=== PATIENT | female | born 1965 | race Caucasian/White ===

== ENCOUNTER → 2017-08-07 16:13 | Outpatient (CLI) | payer BC, SELFPAY ==
--- NOTE | 2017-08-07 16:15 | RAD_ITS ---
STUDY: X-RAY - RIGHT SHOULDER REASON FOR EXAM: Pain. TECHNIQUE: 3 view(s) of the shoulder. COMPARISON: None. FINDINGS: Normal glenohumeral articulation. There is acromioclavicular arthrosis. There is a small enthesophyte at the lateral aspect of the acromion. There is a small exostosis at the posterior aspect of the scapula on the scapular Y view. Normal humeral head and visualized proximal humerus. There is calcific tendinitis. Normal visualized pulmonary apex. RAD/Shoulder min 2 Views IMPRESSION: Calcific tendinitis. Acromioclavicular arthrosis. Electronically Signed: Godwin Cadena MD at 13:28 EDT Tel , Service support ,
== END ==
PROVIDERS: Family Provider Family Medicine; PCP Family Medicine; Visit Provider Orthopaedic Surgery
DX: M75.01 Adhesive capsulitis of right shoulder (principal); M75.02 Adhesive capsulitis of left shoulder
CPT/HCPCS: 73030

== ENCOUNTER → 2017-10-09 13:22 | Outpatient (CLI) | payer BC, SELFPAY ==
--- NOTE | 2017-10-09 13:23 | RAD_ITS ---
STUDY: X-RAY - CERVICAL SPINE REASON FOR EXAM: Female, 52 years old. Pain TECHNIQUE: 4 view(s) of the cervical spine were obtained. COMPARISON: None FINDINGS: Normal anterior atlantoaxial articulation. Normal odontoid process. Normal cervical lordosis. There are diffuse confluent flowing osteophytes along the anterior cervical spine. Multilevel disc space narrowing is seen. There is no significant change in alignment with the flexion and extension films. Normal visualized intervertebral neuroforamina. The soft tissue structures are unremarkable. There is a small density posterior to the spinous process of C6 which may represent a remote fracture. 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 Please correlate with history of ankylosing spondylitis. Diffuse idiopathic skeletal hyperostosis could also have this appearance. No definite acute fracture. Electronically Signed: Darryl Samuels DO at 13:08 EDT Tel , Service support ,
== END ==
PROVIDERS: Family Provider Family Medicine; PCP Family Medicine; Visit Provider Orthopaedic Surgery
DX: M54.2 Cervicalgia (principal)
CPT/HCPCS: 72050

== ENCOUNTER → 2017-10-29 15:36 | Outpatient (CLI) | payer BC, SELFPAY ==
--- NOTE | 2017-10-29 15:39 | MRI_ITS ---
STUDY: MRI CERVICAL SPINE WITHOUT CONTRAST REASON FOR EXAM: Female, 52 years old. Neck pain radiating to right upper extremity TECHNIQUE: Standardized fat and water weighted pulse sequences were obtained in the sagittal and axial planes. COMPARISON: None FINDINGS: Normal foramen magnum and brainstem-cervical cord junction. Normal craniovertebral junction. Normal anterior atlantoaxial articulation. Normal odontoid process. Normal cervical lordosis. Normal vertebral bodies and posterior osseous elements. C2-3: Normal endplates. Normal disc height, signal and morphology. Normal central canal and intervertebral neural foramina. C3-4: Normal endplates. Normal disc height, signal and tiny central disc protrusion. Normal central canal and intervertebral neural foramina. C4-5: Normal endplates. Normal disc height, signal and morphology. Normal central canal and intervertebral neural foramina. C5-6: Normal endplates. Normal disc height, signal and morphology. Normal central canal and intervertebral neural foramina. C6-7: Normal endplates. Normal disc height, signal and tiny central disc protrusion.. Normal central canal and intervertebral neural foramina. C7-T1: Normal endplates. Normal disc height, signal and morphology. Normal central canal and intervertebral neural foramina. Normal cervical cord. Normal visualized soft tissue structures. MRI/Spine Cervical (Routine) IMPRESSION: No evidence for acute fracture or subluxation. Tiny central disc protrusion at C3-4 and C6-7 without evidence for spinal stenosis Electronically Signed: Florentin Taylor MD at 19:25 EDT , Service support ,
== END ==
PROVIDERS: Family Provider Family Medicine; PCP Family Medicine; Visit Provider Orthopaedic Surgery
DX: M54.12 Radiculopathy, cervical region (principal)
CPT/HCPCS: 72141

== ENCOUNTER 2018-01-01 15:00 | Outpatient (RCR) | payer BC, SELFPAY ==
--- NOTE | 2017-12-05 07:59 | HP.PTEVAL ---
Patient's Visit Information ROBERTO MCADAMS is a 52 year old F referred to Physical Therapy by Kyra Villar DO with a diagnosis of B frozen shoulder. Date of Evaluation: 12/04/17 Physical Therapist: Samuel Armenta PT, - Visit Plan Frequency: 2-3x /Week Duration: 4-6 Weeks Plan: B shoulder PROM/AROM/MOBS, strengthening (rot cuff), scap stab, ube, HEP - Subjective Subjective: Pt reports her L shoulder became sore 2 years ago. Pt reports she had PT for her limited ROM and pain in the past. Pt notes her R shoulder became sore about 5-6 mos ago. Pt reports neither one of her shoulders were injured, the pain just came on over time. Pt reports she did have a cortisone injection into her R shoulder which helped over the weekend, but her pain is starting to return. Pt reports she is scheduled to see a neurologist for her neck pain she has at this time. Pt has B UE T and N that extends to her fingers. Pt is R hand dom. Pt has been seen by a spine surgeon that said there is nothing she can do for the impairment. 3/10 pain at rest, 9/10 at worst (at night). 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 B bicepital reflex= 2/3. Palpation: No obvious deformity present at this time. ROM: R shoulder flex= 127, abd= 92, ER= 15, IR severely limited; R shoulder flex= 85, abd= 50, ER= 0, IR severely limited. MMT: B shoulders are grossly 4/5 in available range. Special testing: pos empty can - Goals Goal 1:: Decrease B shoulder pain x 50% to aid with sleep Goal Time Frame: 4-6 Weeks Goal 2:: Increase B shoulder flex and abd ROM x 40 degrees to aid with over head activity Goal Time Frame: 4-6 Weeks Goal 3:: Increase B shoulder strength x 1 grade to aid with IADL's Goal Time Frame: 4-6 Weeks Goal 4:: I with HEP Goal Time Frame: 4-6 Weeks Goal Time Frame: 2-4 Weeks - Rehabilitation Potential Physical Therapy Diagnosis: B shoulder pain, weakness, and limited ROM secondary to B adhesive capsulitis Rehabilitation Potential: Good - Anticipated Interventions Patient/Client Instruction: Educate patient on: Condition, Plan of Care For the Purpose of:: To improve self management Therapeutic Exercise to Include: Strength training, Endurance training, Flexibilty training, Passive ROM, Active ROM, Scapular Strength/Stabilization For the Purpose of:: To decrease pain, To increase ROM, To improve muscle performance and motor function Cryotherapy (ice pack, ice massage): Yes Thermo therapy (hot pack): Yes Ultrasound (thermal/non thermal): Yes For the Purpose of:: To decrease pain Thank you for the opportunity to evaluate your patient. For Medicare and Medicare HMO plans, please review the plan of care and approve it. It will need to be FAXED BACK to us at [phone] for Medicare purposes. Please let me know if there are questions or concerns regarding this plan of care. Physician Signature: Date:
--- NOTE | 2018-02-22 09:35 | HP.PT.NRP ---
HP - Discharge Summary (1) - Patient Information ROBERTO MCADAMS was seen in my office for initial evaluation on 12/04/17. The following Plan of Care was established for this patient: Initial Frequency: 2-3x /Week Initial Duration: 4-6 Weeks - Anticipated Interventions Patient/Client Instruction: Educate patient on: Condition, Plan of Care For the Purpose of:: To improve self management Therapeutic Exercise to Include: Strength training, Endurance training, Flexibilty training, Passive ROM, Active ROM, Scapular Strength/Stabilization For the Purpose of:: To decrease pain, To increase ROM, To improve muscle performance and motor function Cryotherapy (ice pack, ice massage): Yes Thermo therapy (hot pack): Yes Ultrasound (thermal/non thermal): Yes For the Purpose of:: To decrease pain This patient was last seen in our office . Pertinent comments regarding their Physical therapy will appear below: Pt was treated for 6 PT visits for her B frozen shoulders through the date of 01/01/18. Pt did not return after that treatment through todays date, and is therefore discontinued at this time At this point I will be discontinuing this patient from physical therapy. I would be happy to see this patient again in the future if found appropriate by the physician. Thank you! Samuel Armenta, PT,
== END 2018-01-01 19:00 | disposition home or self-care (01) ==
LOC: PT 15:00
PROVIDERS: Family Provider Family Medicine; PCP Family Medicine; Visit Provider Orthopaedic Surgery
DX: M75.02 Adhesive capsulitis of left shoulder (principal); M75.01 Adhesive capsulitis of right shoulder
CPT/HCPCS: 97110; 97140; 97161

== ENCOUNTER 2018-04-01 20:17 | Emergency (ER) | payer BC, SELFPAY ==
[2018-04-01 20:20] VITALS: BP 138/80; PULSE 93; RESP 16; TEMP 36.4; O2SAT 97; BMI 30.9
--- NOTE | 2018-04-01 20:30 | US_ITS ---
STUDY: VENOUS DOPPLER ULTRASOUND - LEFT LOWER EXTREMITY REASON FOR EXAM: Female, 52 years old. Left leg pain TECHNIQUE: Ultrasound evaluation of the deep vein system to include castelan-scale imaging and compression was performed. Castelan-scale imaging and Doppler sonographic evaluation, including duplex spectral analysis and qualitative color flow sonography, was performed. COMPARISON: None. FINDINGS: Common Femoral Vein: Normal compression, spontaneity and augmentation. Normal color Doppler. Common Femoral Vein/Greater Saphenous Junction: Normal compression, spontaneity and augmentation. Normal color Doppler. Deep Femoral Vein: Normal compression, spontaneity and augmentation. Normal color Doppler. Femoral Proximal: Normal compression, spontaneity and augmentation. Normal color Doppler. Femoral Middle: Normal compression, spontaneity and augmentation. Normal color Doppler. Femoral Distal: Normal compression, spontaneity and augmentation. Normal color Doppler. Popliteal Vein: Normal compression, spontaneity and augmentation. Normal color Doppler. Posterior Tibial Vein: Normal compression, spontaneity and augmentation. Normal color Doppler. Peroneal Vein: Normal compression, spontaneity and augmentation. Normal color Doppler. US/Venous Duplex Imag/Limited/Uni IMPRESSION: Normal venous Doppler ultrasound of the lower extremity. Electronically Signed: Osmin Maloney MD at 21:08 EST , Service support ,
--- NOTE | 2018-04-01 21:33 | ED.DCSUM_ITS ---
- ER Visit Summary Date of Service: 04/01/18 Chief Complaint: Left hamstring pain. History of Present Illness: The patient is a 52 F complaining of left hamstring pain for 2 days. No falls or trauma. She did start a new job at [employer] and has been hot. She also bands and carries things a lot. No recent travel, surgery or immobilization. No recent hospitalization PE. No calf pain or swelling. No chest pain or shortness of breath. When she was sent in by her primary care physician for a noninvasive study. Physical Examination: Well-appearing female. No acute distress. Vital signs are stable and afebrile. Pulse ox 97% on room air no signs of hypoxia. H EENT exam normal. Neck nontender. Lungs clear to auscultation bilaterally. Heart regular rhythm no murmur. Abdomen is soft nontender. Extremities moves all 4. Neurovascular intact. Both calves are nontender without edema or cords. Dorsi plantar flexion intact. DP pulse left foot. Left hamstring has minimal tenderness. There is no redness or warmth. There is no bruising. There is no bony deformity. She has full range of motion of the left lower extremity. With flexion extension of the hip and knee and ankle. Reactive lymphadenopathy no sensory or motor loss. No signs of infection or trauma. Neurologic exam normal. Test Results: Noninvasive study left leg normal. No DVT. Emergency Department Course and Treatment: Likely my suspicion for DVT was low. The ultrasound was negative. I think this is musculoskeletal etiology from her new job and increased activity. Treatment Plan: Ice to the area. Hot shower and warm bath. Motrin for pain. Disposition: Discharge Impression: Left hamstring muscular skeletal pain This note was generated with [employer] dictation software. It may contain incorrect words, spelling, and punctuation that were not noted in review of the chart prior to signing ED Disposition - Plan for ED Patient: Chief Complaint: Lower Extremity Injury Referrals: Keith Lopez MD [Primary Care Provider] -
--- NOTE | 2018-04-01 21:33 | ED.DEP ---
ED Disposition - Plan for ED Patient: Disposition: Home or Assisted Living Chief Complaint: Lower Extremity Injury Instructions: ED Strain Muscle Ext Referrals: Keith Lopez MD [Primary Care Provider] - As Needed Additional Instructions: Rest, Motrin, warm compresses and/or ice. This should progressively improve if not be reevaluated.
== END 2018-04-01 21:54 | disposition home or self-care (01) ==
PROVIDERS: Emergency Provider Emergency Medicine; Family Provider Family Medicine; PCP Family Medicine
DX: M79.18 Myalgia, other site (principal); E11.9 Type 2 diabetes mellitus without complications
CPT/HCPCS: 93971; 99282

== ENCOUNTER → 2018-10-22 13:44 | Outpatient (CLI) | payer BC, SELFPAY ==
--- NOTE | 2018-10-22 13:48 | RAD_ITS ---
STUDY: X-RAY - PELVIS REASON FOR EXAM: Female, 53 years old. Arthropathy TECHNIQUE: One view of the pelvis was obtained. COMPARISON: None. FINDINGS: There is a non-specific bowel gas pattern. Normal visualized soft tissue structures. Status post bilateral tubal ligation. Normal bilateral iliac wings, sacroiliac joints and visualized sacrum. Normal visualized bilateral superior and inferior pubic rami. Normal pubic symphysis. Normal ischial tuberosities. Normal visualized right femoral head. Normal right acetabulum. Normal right hip joint. Normal visualized left femoral head. Normal left acetabulum. Normal left hip joint. RAD/Pelvis 1 or 2 Views IMPRESSION: Normal x-ray examination of the pelvis. Electronically Signed: uHgh Paulino MD at 17:10 EDT Tel , Service support ,
== END ==
PROVIDERS: Family Provider Family Medicine; PCP Family Medicine; Referring Provider Internal Medicine Rheumatology; Visit Provider Internal Medicine Rheumatology
DX: M06.4 Inflammatory polyarthropathy (principal); M48.10 Ankylosing hyperostosis [Forestier], site unspecified; R51 Headache; E11.9 Type 2 diabetes mellitus without complications; G47.33 Obstructive sleep apnea (adult) (pediatric); Z87.11 Personal history of peptic ulcer disease
CPT/HCPCS: 72170

== ENCOUNTER → 2018-10-24 09:35 | Outpatient (CLI) | payer BC, SELFPAY ==
[2018-10-24 12:16] LABS: Absolute Lymphocyte Count 2.02 X10^3/ul (0.83-4.51); Absolute Neutrophil Count 2.9 X10^3/uL (2.0-7.7); Basophil# 0.04 X10^3/uL; Basophil% 0.7 % (0-1); Eosinophils% 1.8 % (0-5); Hematocrit 43.3 % (37-47); Hemoglobin 14.3 g/dl (12.0-15.0); Lymphocyte # 2.02 X10^3/ul (4.0); Lymphocyte % 36.6 % (19-41); Mean Corpuscular Hgb 27.4 pg (27.0-32.0); Mean Corpuscular Volume 83.1 fL (81-99); Mean Platelet Vol. 11.4 fl (6.2-12.0); Monocyte# 0.43 X10^3/uL; Monocyte% 7.8 % (0-10); Neutrophil # 2.92 X10^3/uL (2.7-7.7); Neutrophil % 52.9 % (47-70); Platelet Count 218 K/mm3 (150-450); RBC Distribution Width CV 12.6 % (11.6-14.6); RBC Distribution Width SD 38.2 fl (35.1-43.9); Red Blood Count 5.21 M/mm3 (4.2-5.4); White Blood Count 5.5 K/mm3 (4.4-11.0)
[2018-10-24 12:17] LABS: POSITIVE COUNT NO; POSITIVE DIFFERENTIAL NO; POSITIVE MORPHOLOGY NO
[2018-10-24 12:31] LABS: Hemoglobin A1c 6.8 % (4.2-6.3)
[2018-10-24 12:36] LABS: ALB/GLOB Ratio 0.9 RATIO (0.9-2.4); AST(SGOT) 18 U/L (15-37); Alanine Aminotransfer ALT/SGPT 37 U/L (13-56); Albumin, Serum 3.6 g/dL (3.2-5.0); Alkaline Phosphatase 62 U/L (45-117); Anion Gap 8 (5-15); BUN 10 mg/dL (7-18); BUN/Creat Ratio 15.6 RATIO (10-20); Calcium,Total 8.9 mg/dL (8.5-10.1); Chloride 109 mmol/L (98-107); Cholesterol 144 mg/dL (200); Creatinine, Serum 0.64 mg/dL (0.55-1.02); EST Glomerular Filtration Rate 103 mL/min (>60); Est Glom Filt Rate - Afr Amer 125 mL/min (>60); Globulin 3.8 g/dL (2.2-4.2); Glucose 142 mg/dL (74-106); High Density Lipoprotein 46 mg/dL; Potassium 3.8 mmol/L (3.5-5.1); Protein, Total 7.4 g/dL (6.4-8.2); Rheumatoid Factor < 10.0 IU/mL (<15); Sodium Level 143 mmol/L (136-145); Thyroid Stim Hormone (TSH) 0.98 uIU/mL (0.358-3.74); Triglycerides 68 mg/dL; Very Low Density Lipoprotein 14 mg/dL (5-40)
[2018-10-24 12:38] LABS: Microalbumin,Random Urine 20.2 mg/L (NO RANGE EST.); Microalbumin:Creatinine Ratio 8.6 mg/g CRE (<30 mg/g CRE)
[2018-10-24 12:49] LABS: Hepatitis B Surface Antibody Non-Reactive; Hepatitis B Surface Antigen Non-Reactive (Nonreactive)
[2018-10-25 13:52] LABS: ANTINUCLEAR ANTIBODIES DIRECT Negative (Negative)
[2018-10-27 11:35] LABS: Hepatitis C Antibody Non-Reactive (Nonreactive)
[2018-10-29 16:10] LABS: CCP IgG Antibodies 2 units (0-19); HLA B27 Negative (.); Hepatitis B Core AB IgM Negative (Negative)
== END ==
PROVIDERS: Family Provider Family Medicine; PCP Family Medicine; Referring Provider Internal Medicine Rheumatology; Visit Provider Internal Medicine Rheumatology
DX: M06.4 Inflammatory polyarthropathy (principal); M48.10 Ankylosing hyperostosis [Forestier], site unspecified; R51 Headache; E11.9 Type 2 diabetes mellitus without complications; R23.2 Flushing
CPT/HCPCS: 36415; 80053; 80061; 81374; 82043; 82533; 82570; 83036; 84443; 85025; 86038; 86200; 86431; 86705; 86706; 86803; 87340

== ENCOUNTER → 2019-02-05 12:17 | Outpatient (CLI) | payer BC, SELFPAY ==
[2018-11-29 09:09] VITALS: BMI 30.9
== END ==
PROVIDERS: Visit Provider Family Medicine
DX: R06.02 Shortness of breath (principal); R07.9 Chest pain, unspecified
CPT/HCPCS: 84484

== ENCOUNTER → 2019-02-06 08:23 | Outpatient (CLI) | payer BC, SELFPAY ==
[2019-02-06 08:16] VITALS: BMI 30.9
--- NOTE | 2019-02-06 08:24 | RAD_ITS ---
STUDY: X-RAY - LEFT ELBOW REASON FOR EXAM: Female, 53 years old. Elbow pain radiating up and down arm for one month. No known injury. TECHNIQUE: 3 view(s) of the elbow. COMPARISON: None. FINDINGS: Olecranon spur. Normal radiocapitellar and ulnotrochlear articulations. Ossification of the origin and insertion sites of the common flexor tendon. RAD/Elbow min 3 Views IMPRESSION: Olecranon spur with ossification of the common flexor tendon origin and insertion sites. No other abnormality. Electronically Signed: Esteban Ochoa MD at 11:29 EDT , Service support ,
== END ==
PROVIDERS: Referring Provider Orthopaedic Surgery; Visit Provider Orthopaedic Surgery
DX: M77.12 Lateral epicondylitis, left elbow (principal)
CPT/HCPCS: 73080

== ENCOUNTER 2019-02-06 09:28 | Outpatient (RCR) | payer BC, SELFPAY ==
[2019-02-06 08:16] VITALS: BMI 30.9
--- NOTE | 2019-02-06 11:31 | HP.OTEVAL_ITS ---
Patient's Visit Information ROBERTO MCADAMS is a 53 year old F, referred to Occupational Therapy by Kyra Villar DO, with a diagnosis of L lateral epicondylitis. Date of Evaluation: 02/06/19 Occupational Therapist: Cinthya Rodriguez - Subjective Subjective: Pt seen for initial occupational therapy evaluation for L lateral epicondylitis that pt states has occured for about a month. She states the pain has started to get worse recently. R hand dominent. 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 Pt states hx frozen bilateral shoulders that she has done therapy for in the past. Pt states she wants to try some exercises and see if she can get rid of the pain without having to complete a cortizone shot. Pt has elbow brace for L elbow and has wrist brace available at home. - Pain L elbow 4 Pain Intensity Range: 1, 8 - Objective Objective/Observation: painful to move L elbow, edema L elbow - ROM Elbow: R 0/134, L 0/133 - Strength [employer]: R 55#, L 33# - Edema Other: Slight edema L elbow - Sensation Sensation Comments: No numbness or tingling noted - Quick DASH-Disab of Arm,Shoulder& Hand Quick DASH Score: 27.2725 - Goals Goal:: Pt will progress w/ L hand grassroots organizer strength by 15# to assist w/ opening containers independently by d/c from OT services. Goal:: Pt will demo no pain greater than 1/10 with movement L elbow by d/c from OT services. Goal:: Pt will be educated on L UE HEP with good understanding and demo 100%x - Rehabilitation General Assessment: Pt seen for initial occupational therapy evaluation for L lateral epicondylitis with increased pain L elbow at rest and with repetitive movements. 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 Pt would benefit from direct occupational therapy services to educate on joint protection, decrease pain of L elbow, increase strength of L UE, educate on HEP to increase pts quality of life and ability to use L elbow w/o pain again 1-2x/wk x 4-6wks. Rehabilitation Potential: Excellent - Anticipated Interventions Anticipated Interventions: Strengthening, Edema Control, Massage, Triggerpoint Release, Modalities, Joint Protection/Energy Conservation, Education re assistive Equipment, Education re Diagnosis, Education re Skin Care and Precautions, Education re Self Massage Techniques, Education re Correct Donning Tech,Care&Wearing Sched Comp Garments, Home Program - Visit Plan Frequency: 1-2x /Week Duration: 4-6 Weeks General Plan: Pt would benefit from direct occupational therapy services to educate on joint protection, decrease pain of L elbow, increase strength of L UE, educate on HEP, provide modalities or orthosis as needed to decrease pain, all to increase pts quality of life and ability to use L elbow w/o pain again 1- 2x/wk x 4-6wks. TEXT: Thank you for the opportunity to evaluate your patient. For Medicare and Medicare HMO plans, please review the plan of care and approve it. It will need to be FAXED BACK to us at [phone] for Medicare purposes. Please let me know if there are questions or concerns regarding this plan of care. Physician Signature: Date:
--- NOTE | 2019-04-29 15:33 | HP.OT.NRP ---
HP - Discharge Summary - Patient Information ROBERTO MCADAMS was seen in my office for initial evaluation on 02/06/19. The following Plan of Care was established for this patient: Initial Frequency: 1-2x /Week Initial Duration: 4-6 Weeks - Anticipated Interventions Anticipated Interventions: Strengthening, Edema Control, Massage, Triggerpoint Release, Modalities, Joint Protection/Energy Conservation, Education re assistive Equipment, Education re Diagnosis, Education re Skin Care and Precautions, Education re Self Massage Techniques, Education re Correct Donning Tech,Care&Wearing Sched Comp Garments, Home Program This patient was last seen in our office 02/06/19. Pertinent comments regarding their Occupational therapy will appear below: Pt seen for OT evaluation only 02/06/19. Pt did not return for OT tx. D/C OT POC At this point I will be discontinuing this patient from occupational therapy. I would be happy to see this patient again in the future if found appropriate by the physician. Thank you! Cinthya Rodriguez
== END 2019-02-06 19:00 | disposition home or self-care (01) ==
LOC: OT 09:28
PROVIDERS: Referring Provider Orthopaedic Surgery; Visit Provider Orthopaedic Surgery
DX: M77.12 Lateral epicondylitis, left elbow (principal)
CPT/HCPCS: 97165; 97166

== ENCOUNTER 2020-03-12 00:33 | Emergency (ER) | payer BC, SELFPAY ==
[2020-03-12 00:33] VITALS: BP 149/84; PULSE 80; RESP 16; TEMP 36.1; O2SAT 100; BMI 29.0
--- NOTE | 2020-03-12 01:00 | RAD_ITS ---
STUDY: X-RAY - PELVIS REASON FOR EXAM: Female, 54 years old. Fall, left hip pain. Patient stated she has DISH. TECHNIQUE: One view of the pelvis was obtained. COMPARISON: None. FINDINGS: There is a non-specific bowel gas pattern. Normal visualized soft tissue structures. There is narrowing with cortical sclerosis and osteophyte formation of the sacroiliac joint consistent with degenerative osteoarthritic changes. Normal visualized bilateral superior and inferior pubic rami. There are degenerative changes of the pubic symphysis with articular narrowing and sclerosis. Normal ischial tuberosities. There are osteoarthritic changes of the right femoral head with marginal osteophyte formation. There is osteoarthritic spur formation of the right acetabular rim. Normal right hip joint. There are osteoarthritic changes of the left femoral head with marginal osteophyte formation. There is osteoarthritic spur formation of the left acetabular rim. Normal left hip joint. RAD/Pelvis 1 or 2 Views IMPRESSION: Degenerative changes in the osseous structures of the pelvis. Electronically Signed: Jeannie Contreras, at 1:49 EST Tel , Service support ,
--- NOTE | 2020-03-12 01:00 | CT_ITS ---
STUDY: CT BRAIN WITHOUT CONTRAST REASON FOR EXAM: Female, 54 years old. FELLOUT OF BED,HEAD AND RT ANTERIOR NECK PAIN -- HX:DIABETES,DISH RADIATION DOSAGE (If Supplied By Facility): CTDIvol = ( 44.99 ) mGy, DLP = ( 880.47 ) mGycm TECHNIQUE: Transaxial CT imaging of the brain was performed without administration of intravenous contrast material. Individualized dose optimization techniques were used for this CT. COMPARISON: No relevant priors. FINDINGS: Normal soft tissue structures. Normal calvarium. Normal size ventricles and extra-axial spaces for the patient''s age. Normal white matter tracts of the cerebral hemispheres. Normal basal ganglia and thalami. Normal brainstem. Normal cerebellum. There is no intracranial hemorrhage. There are no findings of an acute ischemic infarction. Normal visualized paranasal sinuses. CT/Brain/Head without Contrast IMPRESSION: Normal unenhanced CT scan of the brain. Electronically Signed: Jeannie Contreras, at 1:37 EST Tel , Service support ,
--- NOTE | 2020-03-12 01:00 | CT_ITS ---
STUDY: CT CERVICAL SPINE WITHOUT CONTRAST REASON FOR EXAM: Female, 54 years old. FELLOUT OF BED,HEAD AND RT ANTERIOR NECK PAIN -- HX:DIABETES,DISH RADIATION DOSAGE (If Supplied By Facility): CTDIvol = ( 22.24 ) mGy, DLP = ( 437.43 ) mGycm TECHNIQUE: High resolution transaxial imaging was performed without contrast material. Sagittal and coronal images were reconstructed. Individualized dose optimization techniques were used for this CT. COMPARISON: None FINDINGS: Normal craniovertebral junction. Normal anterior atlantoaxial articulation. Normal odontoid process. Normal cervical lordosis. Bridging osteophytes are seen extending from C2 down to T1 consistent with DISH. C2-3: Normal endplates. Normal disc height and morphology. Normal central canal and intervertebral neuroforamina. C3-4: Normal endplates. Normal disc height and morphology. Normal central canal and intervertebral neuroforamina. C4-5: Normal endplates. Normal disc height and morphology. Normal central canal and intervertebral neuroforamina. C5-6: Normal endplates. Normal disc height and morphology. Normal central canal and intervertebral neuroforamina. C6-7: Normal endplates. Normal disc height and morphology. Normal central canal and intervertebral neuroforamina. C7-T1: Normal endplates. Normal disc height and morphology. Normal central canal and intervertebral neuroforamina. Normal visualized soft tissue structures. CT/Spine Cervical without Contras IMPRESSION: No acute bone injury of the cervical spine. Electronically Signed: Jeannie Contreras, at 1:40 EST Tel , Service support ,
[2020-03-12] MEDS: Ibuprofen 600 MG Tablet PO (01:04)
--- NOTE | 2020-03-12 01:05 | ED.VIS.FALL ---
History of Present Illness Chief Complaint: Fall Informant: Patient Occurred: Today Fall from Height (ft): 2+ Location: occipital head, base of neck, left posterior pelvis Quality of Pain: Aching Current Severity: Moderate Maximum Severity: Moderate Worsened by: palpation Relieved by: resting Associated Symptoms: Negative for: Parasthesias, Weakness, Loss of function, Inability to ambulate, Loss of consciousness, Amnesia Narrative: Patient accidentally rolled out of bed and onto hard nearby floor without striking anything else that she knows of. She landed on her head and left side. She has pain in the posterior pelvis. She is ambulatory. She denies any extremity injury. She has limited range of motion of her neck due to her DISH and chronic pain that is manageable. She is also having right anterior neck pain in the area of the sternocleidomastoid. - Past Medical History (1) DISH (diffuse idiopathic skeletal hyperostosis) Status: Chronic (2) Type 2 diabetes mellitus Status: Chronic Past Medical History - Allergies and Home Meds Allergies/Adverse Reactions: Allergies aspirin Allergy (Mild, Verified 03/12/20 00:36) Unknown dicyclomine Allergy (Mild, Verified 03/12/20 00:36) Unknown prednisone Allergy (Verified 03/12/20 00:36) Other Penicillins Adverse Reaction (Verified 03/12/20 00:36) Hives Sulfa (Sulfonamide Antibiotics) Adverse Reaction (Verified 03/12/20 00:36) Hives Primary Care Physician: Keith Lopez MD [Primary Care Provider] - Lives: With Family Smoking Status: Never smoker Review of Systems General: Denies: Chills, Fever, Sweats Eyes: Denies: Visual changes - bilaterally, Diplopia ENT: Denies: Bilateral ear pain, Rhinorrhea, Sore throat Cardiovascular: Denies: Chest pain, Palpitations Respiratory: Denies: Dyspnea, Cough, Dyspnea on exertion Gastrointestinal: Denies: Abdominal pain, Nausea, Vomiting, Diarrhea, Melena, Hematochezia Genitourinary: Denies: Dysuria, Hematuria, Frequency Musculoskeletal: Reports: Neck pain, Back pain. Denies: Extremity Pain Skin: Denies: Rash, Wounds Neurological: Reports: Headache. Denies: Weakness, Numbness Physical Exam Vital Signs/Narrative: Vital Signs Temp Pulse Resp BP Pulse Ox 03/12/20 00:33 97 F L 80 16 149/84 H 100 Inital Vital Signs reviewed: Yes General: Well nourished, Well developed Head: Normocephalic, Tenderness - Occiput, no signs of trauma. No hematoma. No crepitance or depression. Eyes: Perrl, EOMI ENT: No hemotympanum or drainage, No trauma, - - No mastoid process tenderness or pérez sign. No periorbital ecchymosis. No otorrhea. No nasal trauma or other facial trauma/tenderness. Neck: - - Limited range of motion, patient states at baseline for her. Tender at the base of the cervical spine midline. No step-off or signs of trauma. Mildly tender in the middle of the right sternocleidomastoid muscle and at the distal aspect of the tendon/insertion. No bony clavicle or sternal tendern Cardiovascular: Regular rate, Regular rhythm, No murmurs Respiratory: No distress, CTA bilaterally, Chest nontender Abdomen: Soft, Nontender, Nondistended, Normal bowel sounds Back: Paraspinal Tenderness - At left posterior lateral pelvic brim without crepitance or obvious signs of trauma.. Negative for: Spinal Tenderness Extremeties: Able to ambulate and bear weight without any difficulty. Full range of motion throughout all joints of all 4 extremities without difficulty or pain. Skin: Normal color, No rash, No Trauma Neurological: Alert, Oriented x3, Cranial nerves II-XII grossly intact, Normal Strength, Normal Sensation, Normal Gait - Antalgic Psychological: Normal affect, Normal Mood Diagnostic/Tx/Re-eval Clinical Impression(s) from Imaging Studies Brain CT 03/12/20 01:00 IMPRESSION: Normal unenhanced CT scan of the brain. Electronically Signed: Jeannie Contreras, at 1:37 EST Tel , Service support , Cervical Spine CT 03/12/20 01:00 IMPRESSION: No acute bone injury of the cervical spine. Electronically Signed: Jeannie Contreras, at 1:40 EST Tel , Service support , Pelvis X-Ray 03/12/20 01:00 IMPRESSION: Degenerative changes in the osseous structures of the pelvis. Electronically Signed: Jeannie Contreras, at 1:49 EST Tel , Service support , - Medical Decision Making Patient was offered analgesics, she wanted Tylenol or ibuprofen so she was given 600 ibuprofen. Radiography is unremarkable. I reassured the patient, I am not concerned about an internal organ injury, she has no sign of intracranial hemorrhage/trauma, and I think her anterior neck pain is her right sternocleidomastoid that is strained. Supportive care advised, she is comfortable going home and will follow up or return if worse. ED Disposition - Plan for ED Patient: Disposition: Home or Assisted Living Diagnosis: Fall from bed, initial encounter, Closed head injury without loss of consciousness, Neck contusion, Strain of sternocleidomastoid muscle, Back contusion Instructions: ED Sprain Strain Neck, ED Head Injury Adult Referrals: Keith Lopez MD [Primary Care Provider] - As Needed
== END 2020-03-12 02:06 | disposition home or self-care (01) ==
PROVIDERS: Emergency Provider Emergency Medicine; PCP Family Medicine
DX: S09.90XA Unspecified injury of head, initial encounter (principal); S10.93XA Contusion of unspecified part of neck, initial encounter; S20.229A Contusion of unspecified back wall of thorax, initial encounter; W06.XXXA Fall from bed, initial encounter; E11.9 Type 2 diabetes mellitus without complications; G89.29 Other chronic pain; Z88.0 Allergy status to penicillin; Z88.2 Allergy status to sulfonamides; M48.12 Ankylosing hyperostosis [Forestier], cervical region
CPT/HCPCS: 70450; 72125; 72170; 99283

== ENCOUNTER → 2020-09-22 11:52 | Outpatient (CLI) | payer BC, SELFPAY ==
--- NOTE | 2020-09-22 16:40 | STRESSREP ---
Stress Test Report Date: 09-22-2020 Procedure: Exercise tolerance test Indications: Shortness of breath/dyspnea on exertion Consent: Per the patient Procedure: The patient exercised on a Marty protocol for 7 minutes completing stage II and 1 minute of stage III achieving a peak heart rate of 155 bpm (93% predicted maximal heart rate) with a peak blood pressure 190/62 mmHg and a peak MET capacity of approximately 8 MET's. The baseline ECG demonstrated normal sinus rhythm. The peak exercise ECG demonstrated no obvious ECG changes. There was a rare PVC and an isolated ventricular couplet during exercise. The functional capacity was considered average. The patient had no complaint of chest discomfort during exercise or recovery. The examination was discontinued secondary to dyspnea. Impression: 1. Technically adequate (percent predicted maximal heart rate greater than 85%) exercise tolerance test 2. Peak exercise ECG with no obvious ECG changes 3. There was a rare PVC and an isolated ventricular couplet during exercise This note was generated with [employer] software. It may contain incorrect words, spelling, and punctuation that were not noted in checking the note before signing.
== END ==
PROVIDERS: PCP Family Medicine; Referring Provider Family Medicine; Visit Provider Family Medicine
DX: R06.02 Shortness of breath (principal)
CPT/HCPCS: 93017

== ENCOUNTER → 2022-05-02 | Outpatient (CLI) | payer OTHER, SELFPAY ==
--- NOTE | 2022-05-02 13:07 | STRESSREP_ITS ---
Stress Test Report Date: 05-02-2022 Procedure: Exercise tolerance test Indications: Shortness of breath/dyspnea on exertion Consent: Per the patient Procedure: The patient exercised on a Marty protocol for 6 minutes completing Stage II achieving a peak heart rate of 171 bpm (103% predicted maximal heart rate) with a resting blood pressure of 112/84 mmHg and a peak blood pressure 190/62 mmHg and a peak MET capacity of approximately 7 MET's. The baseline ECG demonstrated normal sinus rhythm. The peak exercise ECG demonstrated no obvious ECG changes. There was a rare PVC during exercise and recovery and an isolated ventricular couplet in recovery. The functional capacity was considered average. The patient had no complaint of chest discomfort during exercise or recovery. The examination was discontinued secondary to dyspnea. Impression: 1. Technically adequate (percent predicted maximal heart rate greater than 85%) exercise tolerance test 2. Peak exercise ECG with no obvious ECG changes 3. There was a rare PVC during exercise and recovery and an isolated ventricular couplet in recovery This note was generated with [employer] software. It may contain incorrect words, spelling, and punctuation that were not noted in checking the note before signing.
== END | disposition home or self-care (01) ==
LOC: CVS 11:37
PROVIDERS: PCP Family Medicine; Visit Provider Family Medicine
DX: R06.02 Shortness of breath (principal); R07.89 Other chest pain
CPT/HCPCS: 93017

== ENCOUNTER → 2022-08-25 | Outpatient (CLI) | payer OTHER, SELFPAY | END | disposition home or self-care (01) | LOC: SL 20:23 | PROVIDERS: PCP Family Medicine | DX: G47.33 Obstructive sleep apnea (adult) (pediatric) (principal) | CPT/HCPCS: 95810 ==

== ENCOUNTER 2022-10-27 07:25 | Day surgery (SDC) | payer OTHER, SELFPAY ==
--- NOTE | 2022-10-20 10:50 | RAD_ITS ---
INDICATION: HARP EXAMINATION/TECHNIQUE: X-RAY - XR Chest 2 Views COMPARISON: 12/25/2015. FINDINGS: LINES/DEVICES: None. LUNGS: No consolidation, edema or effusion. No pneumothorax. Small tiny granulomas. MEDIASTINUM AND CARDIOVASCULAR STRUCTURES: Cardiac silhouette not enlarged. Central airways and mediastinal contour are unremarkable. BONES AND SOFT TISSUES: Unremarkable. RAD/Chest PA and Lateral IMPRESSION: No radiographic evidence of acute cardiopulmonary disease. Electronically Signed: Thierry Cabrera MD at 9:00 EDT ,
[2022-10-20 11:15] LABS: Absolute Lymphocyte Count 1.89 X10^3/uL (0.83-4.51); Absolute Neutrophil Count 2.6 X10^3/uL (2.0-7.7); Basophil# 0.05 X10^3/uL; Eosinophils% 1.9 % (0-5); Hematocrit 39.7 % (37-47); Hemoglobin 12.6 g/dL (12.0-15.0); Lymphocyte # 1.89 X10^3/ul (0.83-4.51); Lymphocyte % 36.3 % (19-41); Mean Corp Hgb Conc 31.7 g/dL (32-36); Mean Corpuscular Hgb 26.2 pg (27.0-32.0); Mean Corpuscular Volume 82.5 fL (81-99); Mean Platelet Vol. 10.9 fl (6.2-12.0); Monocyte% 9.6 % (0-10); NRBC Flagged by Analyzer 0 % (0-5); Neutrophil # 2.62 X10^3/uL (2.7-7.7); Neutrophil % 50.4 % (47-70); Platelet Count 203 K/mm3 (150-450); RBC Distribution Width CV 13.9 % (11.6-14.6); RBC Distribution Width SD 41.6 fl (35.1-43.9); Red Blood Count 4.81 M/mm3 (4.2-5.4); White Blood Count 5.2 K/mm3 (4.4-11.0)
[2022-10-20 11:35] LABS: Anion Gap 1 (5-15); BUN 8 mg/dL (7-18); BUN/Creat Ratio 11.2 RATIO (10-20); Calcium,Total 9.2 mg/dL (8.5-10.1); Chloride 108 mmol/L (98-107); Creatinine, Serum 0.72 mg/dL (0.55-1.02); EST Glomerular Filtration Rate 90 mL/min (>60); Est Glom Filt Rate - Afr Amer 109 mL/min (>60); Glucose 149 mg/dL (74-106); Potassium 3.8 mmol/L (3.5-5.1); Sodium Level 138 mmol/L (136-145)
[2022-10-26 07:25] VITALS: BMI 29.2
--- NOTE | 2022-10-27 08:29 | CL.D_ITS ---
Patient Name: ROBERTO MCADAMS Study Date: 10/27/2022 Performing: Aaron Zamudio MD Ht: 65 inches 165.1 cm : 1965 Wt: 176 lbs 79.83 kg Age: 57 Gender: female BSA: 1.87 PROCEDURE(S) PERFORMED DC01-(41225)LHC/COR/LV CLINICAL PROFILE AND INDICATIONS Indications: Suspected CAD Heart Failure: None Stress/Imaging Stress/Image Study Performed: No CONCLUSIONS Normal coronary arteries Normal LV size, wall motion,and systolic function RECOMMENDATIONS Medical therapy DESCRIPTION OF PROCEDURE The patient arrived to the procedure lab. The risks and benefits of the procedure as well as a full description of our services here and current unavailability of surgical backup were fully explained to the patient and/or their significant other prior to the catheterization. The Timeout was completed, verifying the correct patient and procedure. The patient's procedural site was prepped and draped in the usual fashion. Local anesthetic was given subcutaneously to right radial region with Lidocaine 2%. Using a modified Seldinger technique, arterial access was obtained via the right radial artery, a 6Fr sheath was inserted. Right Coronary Artery selective angiography was then performed in multiple views using a 5 Fr. 4.0 Buxton catheter. Left Coronary Artery selective angiography was performed in multiple views using a 5 Fr. 4.0 Buxton catheter. Left Ventriculography was performed in [place] projection using a 5 Fr. Pigtail catheter. LV to AO pullback pressures were then recorded.The arterial sheath was pulled and a TR Band was applied for hemostasis. 7cc air inserted. CORONARY ANGIOGRAPHY DOMINANCE: Right Dominant LEFT HEART ASSESSMENT Left Ventricular Ejection Fraction: by LV Gram 60 % Normal LV wall motion Normal Left Ventricular systolic function Normal Left Ventricular systolic function LEFT MAIN: Angiographically normal LEFT ANTERIOR DESCENDING ARTERY: Angiographically normal CIRCUMFLEX ARTERY: Angiographically normal RIGHT CORONARY ARTERY: Angiographically normal COMPLICATIONS No Complications PROCEDURE MEDICATIONS Versed 1 mg IV Fentanyl 50 mcg IV Versed 1 mg IV Oxygen: 2 L/min via nasal cannula Heparin given IA 10/27/2022 08:09:05 Verapamil 2.5mg, Ntg 100mcgs, 3000 units of Heparin given IA 10/27/2022 08:09:05 SUMMARY OF HEMODYNAMIC DATA Time AIR REST ECG 07:41:21 AO 155/91 (120) SA 08:13:59 LV 135/11, 29 08:19:46 LV 132/13, 19 08:19:54 LV 140/14, 25 08:20:37 LVp 139/18, 26 08:20:40 Signed By Aaron Zamudio MD On 10/27/2022 08:28:14 Aaron Zamudio MD
== END 2022-10-27 10:11 | disposition home or self-care (01) ==
LOC: CLSP 07:25
PROVIDERS: PCP Family Medicine; Referring Provider Internal Medicine Cardiovascular Disease; Visit Provider Internal Medicine Cardiovascular Disease
DX: R06.02 Shortness of breath (principal); E11.9 Type 2 diabetes mellitus without complications; Z82.49 Family history of ischemic heart disease and other diseases of the circulatory system
CPT/HCPCS: 36415; 71046; 80048; 85025; 93458; 99152; 99153; J7040; C1769; C1894; Q9967

== ENCOUNTER 2023-03-29 18:43 | Emergency (ER) | payer OTHER, SELFPAY ==
[2023-03-29 18:44] VITALS: BP 120/66; PULSE 96; RESP 16; TEMP 36.6; O2SAT 100; BMI 27.4
--- NOTE | 2023-03-29 21:57 | EDS_ITS ---
HPI History of Present Illness Chief Complaint: Lower Extremity Injury Narrative Narrative: 57-year-old female past medical history of type 2 diabetes presents with right lateral thigh pain that she has had over the last few days. She relates history that she drove to [place] for 5 to 6 hours over the weekend, and then the following day turned around and came back, driving 5 or 6 hours again nonstop. She has developed pain in her lateral right thigh that is somewhat worse with movement. She feels a knot in the muscle. She describes a burning pain in her right lateral thigh and hip. She denies any back pain. No fevers or chills. No saddle anesthesia, no loss of bowel or bladder. She went to urgent care who urged her to come to the emergency department for rule out ultrasound although her pain in her thigh is lateral. She denies any chest pain or shortness of breath. No other symptoms. [facility] Medical History Arthritis Back pain Cellulitis of right index finger DISH (diffuse idiopathic skeletal hyperostosis) Knee pain Laceration of right index finger Shoulder pain Stomach ulcer Type 2 diabetes mellitus Home Medications NK 03/29/23 [History Last Taken Unknown] Allergy/AdvReac Type Severity Reaction Status Date / Time dicyclomine Allergy Mild Unknown Verified 03/29/23 18:43 aspirin Allergy NEEDS Verified 03/29/23 18:43 FOLLOW-UP prednisone Allergy Other Verified 03/29/23 18:43 doxycycline AdvReac Unknown GI issues, Verified 03/29/23 18:43 rash Penicillins AdvReac Hives Verified 03/29/23 18:43 Sulfa (Sulfonamide AdvReac Hives Verified 03/29/23 18:43 Antibiotics) Family History Mother Hypertension Arthritis Diabetes Father Lung cancer AAA (abdominal aortic aneurysm) Diabetes Sister Hypertension Grandmother AAA (abdominal aortic aneurysm) Uncle AAA (abdominal aortic aneurysm) Surgical History History of breast biopsy History of cholecystectomy History of colposcopy History of esophagogastroduodenoscopy (EGD) History of tubal ligation Social History Smoking Status: Former smoker Tobacco: How many years used: 20 how long ago did patient quit smokin alcohol intake: current alcohol intake frequency: a few times a month Alcohol type: beer substance use type: does not use ROS ROS ED ROS Narrative Constitutional: No fever, no chills. HEENT: No sore throat. No neck pain. No loss of vision. No rhinorrhea. Cardiovascular: No chest pain. No palpitations. No pedal edema. Respiratory: No cough, no shortness of breath. Abdominal: No abdominal pain. No nausea. No vomiting. Genitourinary: No dysuria. No hematuria. Musculoskeletal: Right lateral thigh pain and burning, described more as dull and achy along with burning sensation. Neurologic: No headaches. No dizziness. No lightheadedness. No saddle anesthesia, no loss of bowel or bladder. Skin: No rash. No change in color. Psychiatric: No depression. No anxiety. EXAM Physical Exam Narrative Exam Narrative: Afebrile. Vital signs noted. HEENT: Normocephalic. Atraumatic. PERRL, EOMI. Neck soft and supple. No point tenderness or step off. Cardiovascular: Regular rate and rhythm. No murmurs, rubs, or gallops appreciated. Respiratory: No tachypnea. Lungs clear to auscultation bilaterally. Gastrointestinal: Abdomen soft, nontender, with normoactive bowel sounds. No rebound or guarding. Neurological: Awake. Alert. Nonfocal, nonlateralizing. Skin: No rash. Normal color. No pallor. Musculoskeletal: No pedal edema. Full range of motion extremities. No overt swelling of right lower extremity. Palpable dorsalis pedis pulse, right. Flexion and extension of hip, right intact. Flexion of knee also intact as well as extension. No palpable cord. No vertebral point tenderness or bony step-off of the lumbar spine. Const Vital Signs: 03/29/23 18:44 Temperature 97.9 F Temperature Source Temporal Pulse Rate 96 Respiratory Rate 16 Blood Pressure 120/66 Blood Pressure Mean 84 Pulse Ox 100 Oxygen Delivery Method Room Air MDM MDM MDM Narrative Medical decision making narrative: In the differential diagnosis is muscle strain versus sciatica/lumbar radiculopathy. I have low concern for cauda equina as there are no red flag signs. Lower on the differential is DVT as her pain is all lateral, and in the area of the vastus medialis. I do not feel that x-rays are indicated as she has not had any bony trauma. Ultrasound will be obtained to rule out DVT. As long as this is unremarkable, I do feel that she could be discharged for symptomatic treatment with [id number] analgesics and follow-up with her primary care provider. I do not feel laboratory work is currently indicated. Preliminary report of the ultrasound per copier repair technician reveals no evidence of DVT. At this point in time, she will use [id number] medications as needed for analgesia. I feel she can be discharged safely home with follow-up. Return instructions to the emergency department were reviewed. Disposition is discharged home in stable condition. Discharge Plan Triage Chief Complaint: Lower Extremity Injury ED Provider: Arvind Bronson Dx/Rx/DC Orders Clinical Impression: Pain in right thigh Instructions: ED Myalgias, ED Pain, Acute, Uncertain Cause Prescriptions: No Action NK Primary Care Provider: Keith Lopez Referrals: Keith Lopez MD [Primary Care Provider] - 3-5 Days if not improving Activity Restrictions/Additional Instructions: Use [id number] medications like Tylenol and ibuprofen as needed for pain. Disposition Disposition: Home, Self Care
--- NOTE | 2023-03-29 21:59 | US_ITS ---
STUDY: VENOUS DOPPLER ULTRASOUND - RIGHT LOWER EXTREMITY REASON FOR EXAM: Female, 57 years old. RT LATERAL THIGH PAIN TECHNIQUE: Ultrasound evaluation of the deep vein system to include castelan-scale imaging and compression was performed. Castelan-scale imaging and Doppler sonographic evaluation, including duplex spectral analysis and qualitative color flow sonography, was performed. COMPARISON: 04/01/2018 FINDINGS: Common Femoral Vein: Normal compression, spontaneity and augmentation. Normal color Doppler. Common Femoral Vein/Greater Saphenous Junction: Normal compression, spontaneity and augmentation. Normal color Doppler. Deep Femoral Vein: Normal compression, spontaneity and augmentation. Normal color Doppler. Femoral Proximal: Normal compression, spontaneity and augmentation. Normal color Doppler. Femoral Middle: Normal compression, spontaneity and augmentation. Normal color Doppler. Femoral Distal: Normal compression, spontaneity and augmentation. Normal color Doppler. Popliteal Vein: Normal compression, spontaneity and augmentation. Normal color Doppler. Posterior Tibial Vein: Normal compression, spontaneity and augmentation. Normal color Doppler. Peroneal Vein: Normal compression, spontaneity and augmentation. Normal color Doppler. US/Venous Duplex Imag/Limited/Uni IMPRESSION: Normal venous Doppler ultrasound of the lower extremity. Electronically Signed: Hugh Paulino MD at 23:08 EST ,
== END 2023-03-29 23:18 | disposition home or self-care (01) ==
PROVIDERS: Emergency Provider Emergency Medicine; PCP Family Medicine; Visit Provider Emergency Medicine
DX: M79.651 Pain in right thigh (principal); E11.9 Type 2 diabetes mellitus without complications; Z87.891 Personal history of nicotine dependence; Z90.49 Acquired absence of other specified parts of digestive tract; X58.XXXA Exposure to other specified factors, initial encounter; Y93.89 Activity, other specified; Y92.810 Car as the place of occurrence of the external cause
CPT/HCPCS: 93971; 99282

== ENCOUNTER 2023-09-26 20:24 | Emergency (ER) | payer OTHER, SELFPAY ==
[2023-09-26 20:24] VITALS: BP 167/67; PULSE 91; RESP 16; TEMP 36.6; O2SAT 100; BMI 28.6
--- NOTE | 2023-09-26 20:40 | EDS_ITS ---
HPI History of Present Illness Chief Complaint: Fall Narrative Narrative: 58-year-old female presenting with right-sided rib pain, right hand pain, right knee pain. She states that her dog's leash got tangled up while they were out for a walk and tripped her. She fell with her right hand out landed on her knee and hit her ribs. No head injury or LOC. Not on any blood thinners. She states her knee does not hurt very severely and she was able to walk on it without any difficulty. She has an abrasion over the patella. She does state that her hand hurts and hurts mostly in the mid palm area and she has a superficial abrasion just proximal to this area. The wrist is nontender on the right. No numbness or tingling. She states that her right ribs hurt posteriorly but denies any shortness of breath. [facility] Medical History Cellulitis of right index finger Laceration of right index finger Type 2 diabetes mellitus Back pain Knee pain Stomach ulcer Shoulder pain Arthritis DISH (diffuse idiopathic skeletal hyperostosis) Home Medications ?Medication ?Instructions ?Recorded ?Last Taken ?Type omeprazole 40 mg capsule,delayed 40 mg PO DAILY 09/26/23 Unknown History release Allergy/AdvReac Type Severity Reaction Status Date / Time dicyclomine Allergy Mild Unknown Verified 09/26/23 20:26 aspirin Allergy NEEDS Verified 09/26/23 20:26 FOLLOW-UP prednisone Allergy Other Verified 09/26/23 20:26 doxycycline AdvReac Unknown GI issues, Verified 09/26/23 20:26 rash Penicillins AdvReac Hives Verified 09/26/23 20:26 Sulfa (Sulfonamide AdvReac Hives Verified 09/26/23 20:26 Antibiotics) Family History Mother Hypertension Arthritis Diabetes Father Lung cancer AAA (abdominal aortic aneurysm) Diabetes Sister Hypertension Grandmother AAA (abdominal aortic aneurysm) Uncle AAA (abdominal aortic aneurysm) Surgical History History of esophagogastroduodenoscopy (EGD) History of colposcopy History of breast biopsy History of tubal ligation History of cholecystectomy Social History household members: children housing: house Smoking Status: Former smoker Tobacco: How many years used: 20 how long ago did patient quit smokin alcohol intake: current alcohol intake frequency: a few times a month Alcohol type: beer substance use type: does not use ROS ROS ED Constitutional Constitutional ED: Denies chills, fever(s) or sweats Eyes Eyes: Denies blurry vision or change in vision ENT ENT ED: Denies ear pain or sore throat Cardiovascular Cardiovascular: Denies chest pain, palpitations or racing heartbeat Respiratory/Chest Respiratory/Chest: Reports other Details: Right rib pain ; Denies cough, dyspnea or sputum Gastrointestinal Gastrointestinal: Denies abdominal pain, constipation, diarrhea, nausea or vomiting Genitourinary Genitourinary ED: Denies dysuria, hematuria or urinary frequency Musculoskeletal Musculoskeletal: Reports other Details: Right hand pain, right knee ; Denies arthralgias, myalgias or neck pain Integumentary Reports other Details: Abrasion to right palm and right knee ; Denies abscess, Abrasions or rash Neurologic Neurologic: Denies headache(s), paresthesias or weakness Psychiatric Psychiatric: Denies anxiety, depression, suicidal ideation or suicidal thoughts Endocrine Endocrinology: Denies polydipsia or polyuria EXAM Physical Exam Const Vital Signs: 09/26/23 20:24 09/26/23 20:31 Temperature 97.8 F Temperature Source Temporal Pulse Rate 91 Respiratory Rate 16 Respiratory Effort Normal Non-Labored Blood Pressure 167/67 H Blood Pressure Mean 100 Pulse Ox 100 Oxygen Delivery Method Room Air Positive well nourished General Appearance ED: NAD HEENT atraumatic and trauma Eyes PERRL and EOMs intact bilaterally Neck full ROM Neck Narrative: No midline spinal tenderness, Feldman, step-off Chest Wall Chest Narrative: Equal symmetric breath sounds and chest wall rise. Tenderness to palpation over right lower ribs posteriorly. No crepitance. No ecchymosis. Resp normal respiratory effort and clear to auscultation bilaterally Auscultation: Negative for rales or rhonchi GI normal to inspection, nondistended, normoactive bowel sounds Extremity Extremity Narrative: Tenderness to palpation of the right patella mildly. She is a superficial abrasion overlying this. No deformity. Full range of motion in flexion and extension. Patient weightbearing on this. Tenderness to palpation over the mid palm of the right hand. There is a superficial abrasion proximal to this. Neurovascular intact brisk cap refill to all 5 fingers. Motor strength 5/5 in the right hand. Wrist is nontender on the right. Neuro oriented x3 and CN's II-XII intact bilaterally Sensorium / Orientation: alert Motor Exam: strength 5/5 throughout Psych mental status grossly normal Skin Skin Narrative: As described above MDM MDM MDM Narrative Medical decision making narrative: Patient presenting after mechanical fall. She has an abrasion over the right hand but hurts more distally. She also has an abrasion over the right patella but states that her right knee does not hurt other than the abrasion. Patient also complains of right rib pain. On examination she has tenderness in the right posterior ribs but equal symmetric breath sounds and chest wall rise. Will obtain a right rib series to rule out rib fracture or other acute process. Patient will also have x-ray of the right hand to rule out hand fracture. She does not want an x-ray of the right knee. Lidoderm patch was placed over the right ribs. She was given Tylenol for her pain at her request. She does not want a thing stronger. Right rib series on my interpretation shows no acute fracture. No pneumothorax. Right hand x-ray on my interpretation shows no acute fracture or subluxation. Radiology interprets both of these and agrees. Patient declines Lidoderm patches for home. She does not want any further analgesia. She request a work note for tomorrow. This was provided. Discharged stable condition. Impression: 1. Mechanical fall 2. Right hand contusion 3. Right knee contusion 4. Right rib contusion 5. Superficial abrasions Lab Data Attestation: I reviewed the patient's lab results. Radiography Diagnostic Testing: Clinical Impression(s) from Imaging Studies Hand X-Ray 09/26/23 20:50 IMPRESSION: Degenerative changes. No discrete evidence of acute osseous abnormality. Electronically Signed: Magan Lawrence DO at 21:47 EDT , Ribs w/Chest X-Ray 09/26/23 20:50 IMPRESSION: No evidence of acute rib injury or other acute pathology in the chest. Electronically Signed: Magan Orellanaana cristinaDO jose francisco at 21:49 EDT , Discharge Plan Triage Chief Complaint: Fall ED Provider: Nghia Arias Dx/Rx/DC Orders Instructions: ED Abrasion, ED Hand Contusion, ED Contusion, Lower Extremity, ED Bruise, Rib, ED Fall Prevention Prescriptions: No Action omeprazole 40 mg capsule,delayed release(DR/EC) 40 mg PO DAILY Stand Alone Forms: ED Work / School Excuse Primary Care Provider: Keith Lopez Referrals: Keith Lopez MD [Primary Care Provider] - Print Language: Sinhala Disposition Disposition: Home, Self Care
[2023-09-26] MEDS: Acetaminophen 325 MG Tablet 650 MG PO (20:47)
[2023-09-26] MEDS: Lidocaine 5% Patch 1 PATCH TOPICAL (20:48)
--- NOTE | 2023-09-26 20:50 | RAD_ITS ---
EXAM: XR RIGHT HAND COMPLETE, 3 OR MORE VIEWS CLINICAL INDICATION: pain TECHNIQUE: Frontal, lateral and oblique views of the right hand. COMPARISON: No relevant prior studies available. FINDINGS: BONES/JOINTS: Diffuse interphalangeal joint and metacarpophalangeal joint arthrosis. No acute fracture. No subluxation. Normal alignment. No sclerotic or destructive changes observed. SOFT TISSUES: No significant abnormality. No soft tissue swelling or gas. No radiopaque foreign body. RAD/Hand Min 3 Views IMPRESSION: Degenerative changes. No discrete evidence of acute osseous abnormality. Electronically Signed: Magan Lawrence DO at 21:47 EDT ,
--- NOTE | 2023-09-26 20:50 | RAD_ITS ---
EXAM: XR RIGHT RIBS AND AP CHEST, 3 OR MORE VIEWS CLINICAL INDICATION: pain TECHNIQUE: Frontal and oblique views of the right ribs and frontal view of the chest. COMPARISON: Chest radiograph, 10/20/2022. FINDINGS: LUNGS AND PLEURAL SPACES: No significant abnormality. No consolidation or edema. No pneumothorax. No effusion. HEART: No significant abnormality. Cardiac silhouette not enlarged. MEDIASTINUM: Central airways and mediastinal contour are unremarkable. BONES/JOINTS: Degenerative changes in the spine and shoulders. No evidence of displaced rib fractures. RAD/Ribs Uni Min 3V w/PA Chest IMPRESSION: No evidence of acute rib injury or other acute pathology in the chest. Electronically Signed: Magan Lawrence DO at 21:49 EDT ,
== END 2023-09-26 22:45 | disposition home or self-care (01) ==
PROVIDERS: Emergency Provider Student in an Organized Health Care Education/Training Program; PCP Family Medicine; Visit Provider Student in an Organized Health Care Education/Training Program
DX: S80.01XA Contusion of right knee, initial encounter (principal); E11.9 Type 2 diabetes mellitus without complications; Z87.891 Personal history of nicotine dependence; S60.511A Abrasion of right hand, initial encounter; S60.221A Contusion of right hand, initial encounter; S20.211A Contusion of right front wall of thorax, initial encounter; Y93.K1 Activity, walking an animal; W19.XXXA Unspecified fall, initial encounter; Y92.89 Other specified places as the place of occurrence of the external cause; M19.90 Unspecified osteoarthritis, unspecified site
CPT/HCPCS: 71101; 73130; 99283

== ENCOUNTER 2025-01-30 16:06 | Emergency (ER) | payer OTHER, SELFPAY ==
[2025-01-30 16:08] VITALS: BP 178/75; PULSE 120; RESP 18; TEMP 36.6; O2SAT 99; BMI 28.9
--- NOTE | 2025-01-30 17:00 | EKG12_ITS ---
Test Reason : HTN Blood Pressure : */* mmHG Vent. Rate : 105 BPM Atrial Rate : 105 BPM P-R Int : 168 ms QRS Dur : 76 ms QT Int : 350 ms P-R-T Axes : 76 33 65 degrees QTcB Int : 462 ms Sinus tachycardia Otherwise normal ECG Confirmed by CLARISSA WHITE, AIDA ([id number]), script editor MIGUEL RAUSCH ([id number]) on 02/02/2025 6:30:04 AM Referred By: Confirmed By: AIDA ROMO MD
--- NOTE | 2025-01-30 17:11 | RAD_ITS ---
PROCEDURE: CHEST PA AND LATERAL 01/30/2025 REASON FOR EXAM: DIZZINESS TECHNIQUE: Procedure Code: RADCXR Modality: DX Procedure: CHEST PA AND LATERAL COMPARISON: 10/20/2022 FINDINGS: Hardware: None. Heart: The heart size is normal. Mediastinum: The mediastinal contour is unremarkable. Lungs: The lungs are clear. No pneumothorax or pleural effusion. Bones: The bones are unremarkable. RAD/Chest PA and Lateral IMPRESSION: NO ACUTE FINDINGS. Reading [facility]
[2025-01-30 17:19] LABS: Mucous, Urine 0 SEEN /hpf (<or=2+); Red Blood Cells-Urine 0 SEEN /hpf (0-5); Squamous Epithelial Cells - UA 0 SEEN /hpf (5-10)
[2025-01-30 17:23] LABS: Hematocrit 40.5 % (37-47); Hemoglobin 12.4 g/dL (12.0-15.0); Immature Granulocytes Count 0.020 X10^3/uL (0.0-0.0); Mean Corp Hgb Conc 30.6 g/dL (32-36); Mean Corpuscular Volume 79.3 fL (81-99); Mean Platelet Vol. 11.1 fl (6.2-12.0); NRBC Flagged by Analyzer 0 % (0-5); Platelet Count 282 K/mm3 (150-450); RBC Distribution Width CV 14.0 % (11.6-14.6); RBC Distribution Width SD 39.8 fl (35.1-43.9); Red Blood Count 5.11 M/mm3 (4.2-5.4); White Blood Count 7.4 K/mm3 (4.4-11.0)
[2025-01-30 17:49] LABS: Color, Urine Straw (Yellow); Glucose, Dipstick Normal (Normal); Ketone-Dipstick Negative (Negative); Leukocyte Esterase-Dipstick Negative /ul (Negative); Nitrite-Dipstick Negative (Negative); Occult Blood-Urine Negative /ul (Negative); Protein-Dipstick Negative (Negative); Specific Gravity, Urine 1.010 (1.002-1.030); Urine Bilirubin Dipstick Negative (Negative)
[2025-01-30 18:17] LABS: Anion Gap 12 (5-15); BUN 11 mg/dL (4-19); BUN/Creat Ratio 17.0 RATIO (10-20); Calcium,Total 9.7 mg/dL (7.6-11.0); Carbon Dioxide 25.2 mmol/L (21.0-32.0); Chloride 104 mmol/L (98-108); Estimated Creatinine Clearance 96.47 ml/min (50-250); Glucose 172 mg/dL (70-99); Potassium 3.5 mmol/L (3.3-5.1)
[2025-01-30 18:22] VITALS: BP 134/59; PULSE 105; RESP 20; O2SAT 98
[2025-01-30 19:00] VITALS: BP 139/76; PULSE 80
[2025-01-30 20:00] VITALS: BP 135/80; PULSE 79; O2SAT 100
[2025-01-30 20:12] LABS: D-Dimer Quantitative (DVT/PE) 0.27 FEU/ug/m (0.27-0.49)
--- NOTE | 2025-01-30 20:21 | EX.ED.DYSGE1 ---
HPI History of Present Illness Chief Complaint: Hypertension Informant: patient Narrative Narrative: Patient is a 59-year-old female with history of DISH, dyspnea on exertion and type 2 diabetes mellitus. She is presenting with elevated blood pressure. Patient states that she was home putting groceries away when she started to feel that her head was pounding. She states she does have some and feeling right. She took her blood pressure is 187/88. She took it afterwards and had an elevated diastolic reading but is not sure if it was erroneous. When she continue to check her blood pressure (about every 5 minutes) it was going up. She spoke to the nurse on-call line and they recommended she come to the ER. She notes that she has been short of breath with dyspnea on exertion for months and that has been progressing. She denies any swelling of her leg. Denies any DVT or PE. States she has a mild cough that comes and goes but is dry. She notes that she did recently resume omeprazole as she was having increased GERD symptoms. She was referred to pulmonary neurology by her primary care doctor and has an appointment coming up. She notes that in the past she was evaluated with Dr. Zamudio for elevated heart rate and was put on metoprolol however that caused low blood pressure and she stopped it. She denies any other complaints or concerns at this time. [facility] Medical History Cellulitis of right index finger Laceration of right index finger Type 2 diabetes mellitus Back pain Knee pain Stomach ulcer Shoulder pain Arthritis DISH (diffuse idiopathic skeletal hyperostosis) Home Medications ?Medication ?Instructions ?Recorded ?Last Taken ?Type omeprazole 40 mg capsule,delayed 40 mg PO DAILY 09/26/23 Unknown History release Allergy/AdvReac Type Severity Reaction Status Date / Time dicyclomine Allergy Mild Unknown Verified 01/30/25 16:08 aspirin Allergy NEEDS Verified 01/30/25 16:08 FOLLOW-UP prednisone Allergy Other Verified 01/30/25 16:08 doxycycline AdvReac Unknown GI issues, Verified 01/30/25 16:08 rash Penicillins AdvReac Hives Verified 01/30/25 16:08 Sulfa (Sulfonamide AdvReac Hives Verified 01/30/25 16:08 Antibiotics) Family History Mother Hypertension Arthritis Diabetes Father Lung cancer AAA (abdominal aortic aneurysm) Diabetes Sister Hypertension Grandmother AAA (abdominal aortic aneurysm) Uncle AAA (abdominal aortic aneurysm) Surgical History History of esophagogastroduodenoscopy (EGD) History of colposcopy History of breast biopsy History of tubal ligation History of cholecystectomy Social History household members: children housing: house Smoking Status: Former smoker Tobacco: How many years used: 20 how long ago did patient quit smokin alcohol intake: current alcohol intake frequency: a few times a month Alcohol type: beer substance use type: does not use ROS ROS ED Constitutional Constitutional ED: Denies chills or fever(s) Cardiovascular Cardiovascular: Denies chest pain or palpitations Respiratory/Chest Respiratory/Chest: Reports cough, dyspnea and dyspnea on exertion Gastrointestinal Gastrointestinal: Denies nausea or vomiting Musculoskeletal Musculoskeletal: Reports other Details: left sided rib/chest wall pain ; Denies arthralgias Integumentary Denies rash Neurologic Neurologic: Reports headache(s); Denies weakness Hematologic/Lymphatic Hematologic/Lymphatic: Denies easy bleeding or easy bruising EXAM Physical Exam Const Vital Signs: 01/30/25 16:08 01/30/25 16:48 01/30/25 18:22 Temperature 97.9 F Temperature Source Temporal Pulse Rate 120 H 105 H Respiratory Rate 18 20 H Respiratory Effort Normal Non-Labored Respiratory Pattern Normal Blood Pressure 178/75 H 134/59 H Blood Pressure Mean 109 84 Pulse Ox 99 98 Oxygen Delivery Method Room Air Room Air 01/30/25 19:00 Temperature Temperature Source Pulse Rate 80 Respiratory Rate Respiratory Effort Respiratory Pattern Blood Pressure 139/76 H Blood Pressure Mean 97 Pulse Ox Oxygen Delivery Method Positive well nourished and well developed General Appearance ED: well developed and NAD HEENT Reports moist mucous membranes Eyes PERRL Neck supple and no JVD Chest Wall inspection of chest normal Chest Narrative: 1 localized area of chest wall tenderness on the left lateral chest (mid axillary line at approximate the level of T6). No associated crepitus or skin changes Resp normal respiratory effort and clear to auscultation bilaterally Auscultation: Negative for rhonchi or wheezes Cardio regular rate, regular rhythm and no murmurs GI normal to inspection, nondistended, normoactive bowel sounds and non-tender Extremity General Extremety ED: Yes edema; Negative for tenderness General Extremity: edema Neuro oriented x3 Sensorium / Orientation: alert Motor Exam: Negative for general weakness Psych mental status grossly normal Skin no rashes or lesions noted and no wounds MDM MDM MDM Narrative Medical decision making narrative: Patient brought in for elevated blood pressure at home and some ongoing respiratory symptoms. Differential includes thyroid dysfunction, pulmonary emboli, pneumonia, pulmonary hypertension, pleural effusion, arrhythmia and possible underlying infection. She has a normal neurologic exam and does not any findings consistent with acute stroke. Patient's heart rate and blood pressure initially are elevated but they resolved without any further intervention while in the emergency room. Her CBC, BMP, TSH and D-dimer are all normal. Urinalysis is normal with no signs of proteinuria. She does not have any findings consistent with endorgan damage associate with a hypertensive emergency. Chest x-ray by myself as well as radiology does not show any acute process. I agree that patient likely needs outpatient pulmonology follow-up. At this time I do not think she requires admission to hospital. She is comfortable with this. Discussed that the cause of her symptoms are not clear at this time her workup is largely normal. She does not have any chest pain and her symptoms do not sound cardiogenic at this time I do not think she requires troponins. EKG does not show any strain pattern or ischemic changes. Chart review shows the patient was seen by pulmonology in 2022. At that time she was having dyspnea on exertion. She has had a borderline positive methacholine challenge Lab Data Attestation: I reviewed the patient's lab results. Labs: Laboratory Results - last 24 hr 01/30/25 01/30/25 16:39 17:03 WBC 7.4 RBC 5.11 Hgb 12.4 Hct 40.5 MCV 79.3 L MCH 24.3 L MCHC 30.6 L RDW Std Deviation 39.8 RDW Coeff of Kraig 14.0 Plt Count 282 MPV 11.1 Immature Gran % (Auto) 0.300 Neut % (Auto) 54.9 Lymph % (Auto) 35.0 [place] % (Auto) 7.2 Eos % (Auto) 1.5 Baso % (Auto) 1.1 H Absolute Neuts (auto) 4.0 Absolute Lymphs (auto) 2.57 Nucleated RBC % 0 D-Dimer Quant (PE/DVT) 0.27 Sodium 142 Potassium 3.5 Chloride 104 Carbon Dioxide 25.2 Anion Gap 12 BUN 11 Creatinine 0.66 L Estim Creat Clear Calc 96.47 Est GFR (MDRD) Non-Af 102 BUN/Creatinine Ratio 17.0 Glucose 172 H Calcium 9.7 TSH 1.110 Urine Color Straw Urine Clarity Clear Urine pH 6.0 Ur Specific [place] 1.010 Urine Protein Negative Urine Glucose (UA) Normal Urine Ketones Negative Urine Occult Blood Negative Urine Nitrite Negative Urine Bilirubin Negative Urine Urobilinogen Normal Ur Leukocyte Esterase Negative Urine RBC 0 SEEN Urine WBC 0-5 SEEN Ur Squamous Epith Cells 0 SEEN Urine Bacteria 0 SEEN Urine Mucus 0 SEEN Radiography Chest X-Ray - ED: 2 View, Read by ED Physician, Read by Radiologist and No Acute Disease Diagnostic Testing: Clinical Impression(s) from Imaging Studies Chest X-Ray 01/30/25 17:11 IMPRESSION: NO ACUTE FINDINGS. Reading Location: [facility] Rhythm Strip Rhythm Strip: Sinus Tach Rate: 105 Ectopy: None EKG Initial EKG: Attestation: I personally reviewed and interpreted this EKG as follows: Interpretation: Sinus Tachycardia Comments: Sinus tachycardia rate 105 bpm Normal axis Normal intervals Normal ST segments Discharge Plan Triage Chief Complaint: Hypertension ED Provider: Martha Webb Dx/Rx/DC Orders Clinical Impression: Elevated blood pressure reading, SOB (shortness of breath) Instructions: ED Dyspnea, ED Hypertension, To Be Confirmed Prescriptions: No Action omeprazole 40 mg capsule,delayed release(DR/EC) 40 mg PO DAILY Primary Care Provider: Keith Lopez Referrals: Keith Lopez MD [Primary Care Provider, Medical] Activity Restrictions/Additional Instructions: Your workup today was reassuring. Your chest x-ray did not show any abnormalities (specifically I do not see anything on the left side). The exact cause your symptoms is not clear. Please continue to follow-up outpatient with pulmonology as scheduled. Your blood pressure normalized in the ER and did not have any finding consistent with a hypertensive emergency. At this time I do not think you need blood pressure medication. Print Language: Pashto Disposition Disposition: Home, Self Care
[2025-01-30 20:24] VITALS: BP 139/76; PULSE 80; RESP 20; TEMP 37.1; O2SAT 99
== END 2025-01-30 20:36 | disposition home or self-care (01) ==
PROVIDERS: Emergency Provider Emergency Medicine; PCP Family Medicine; Visit Provider Emergency Medicine
DX: R03.0 Elevated blood-pressure reading, without diagnosis of hypertension (principal); E11.9 Type 2 diabetes mellitus without complications; R06.02 Shortness of breath; Z87.891 Personal history of nicotine dependence; Z82.49 Family history of ischemic heart disease and other diseases of the circulatory system; R51.9 Headache, unspecified; R05.9 Cough, unspecified; Z98.51 Tubal ligation status; Z90.49 Acquired absence of other specified parts of digestive tract
CPT/HCPCS: 71046; 80048; 81001; 84443; 85025; 85379; 93005; 99284; A4216